=== PATIENT | male | born 1980 | race Caucasian/White ===

== ENCOUNTER 2017-07-08 22:44 | Emergency (ER) | payer OTHER ==
[~2017-07-08] VITALS: Ht 177.8 cm; Wt 86.2 kg
--- NOTE | ~2017-07-08 | CR281 ---
[facility] A Service of [facility] RADIOLOGY TEXT RESULTS PATIENT: TONI MEADOWS LOCATION: [place] : [birth year] UNIT #: [id number] AGE: [address]: JENNIFER VARGAS SEX: M ORDER DR: [id number] [facility] [address] [place], [place] [address] [id number] MR#: [id number] Acc #: [id number] NAME: TONI MEADOWS : 1980 SEX: M STUDY DATE/TIME: 07/09/2017 01:05 UNIT: [facility] ROOM: STUDY DESCRIPTION: CR Wrist Min 3 View Lt Attending Physician: Jennifer Vargas Aprn Ordering Physician: Jennifer Vargas Aprn Primary Care Physician: Valeria Guallpa M.D. MEDICAL IMAGING REPORT This report is preliminary unless electronic signature is present EXAM Left wrist, 07/09/2017 at 01:05. INDICATIONS Wrist pain, swelling and laceration after injury on a machine at work. FINDINGS Wrist evaluation in multiple projections shows normal mineralization of the bony structures about the wrist and satisfactory articular relationship of the radius and ulna to the proximal carpal row and of the distal carpal segments to the metacarpal bases. There is no indication of fracture or dislocation, and no soft tissue radiopaque foreign body is present. No congenital defects are apparent. IMPRESSION Normal left wrist. Dictated by... Ant Figueroa Jr., M.D. THIS IS AN ELECTRONICALLY VERIFIED REPORT Ant Figueroa Jr., M.D. at 07/10/2017 4:56 AM DUNIA/farrah TD: 07/09/2017 21:58 JOB #: [id number] MEDICAL IMAGING REPORT Page 1 of 1 COPY
[~2017-07-08 22:44] MED LIST: BACTRIM DS TABL1 TAB PO
== END 2017-07-09 02:41 | disposition home or self-care (01) ==
LOC: CED 22:44 → CFTX 22:44
DX: S61.512A Laceration without foreign body of left wrist, initial encounter (principal); Z23 Encounter for immunization; W45.8XXA Other foreign body or object entering through skin, initial encounter
CPT/HCPCS: 12001; 73110; 90471; 90715; 99283